=== PATIENT | female | born 1940 ===

== ENCOUNTER 2018-07-11 10:40 | Emergency (ER) | payer MEDICARE ==
[2018-07-11] MEDS ORDERED: SODIUM CHLORIDE 0.9% 1000ML 1,000 ML IVS ONE (10:55)
--- NOTE | 2018-07-11 11:12 | ED.PDOC ---
History of Present Illness - General Chief Complaint: Syncope/Near Syncope Stated Complaint: Unsteady gait, syncopal episodes Time Seen by Provider: 07/11/18 10:43 Exam Limitations: no limitations - History of Present Illness Initial Comments: Maggie Tobar 78 y/o female brought by son with history of not able to get up from sitting position 2 days ago for short while then later that day able to move around then yesterday while sitting on a couch she just passed out for few seconds but then woke up talkint.Denies facial asymmetry,slurred speech ,limb weakness,double or blurry vision.Has history of high blood pressure 2 years ago was placed on antihypertensive but unable to tolerate side effect making her irritable then discontinued,also has dementia was on medication but made her throw up everytime she takes it so discontinued.Son stated has problem with short term memory. Timing/Duration: other - 2 days Severity: moderate Improving Factors: nothing Worsening Factors: nothing Associated Symptoms: other - see hpi Allergies/Adverse Reactions: Allergies NO KNOWN ALLERGY Allergy (Verified 07/11/18 10:55) Home Medications: Ambulatory Orders Clopidogrel Bisulfate [Plavix] 75 mg PO QDAC #30 tab 07/11/18 Lisinopril & Hydrochlorothiazi [Lisinopril/Hctz 20-12.5 mg] 1 tab PO ACBK #30 tab 07/11/18 Pravastatin Sodium 20 mg PO BEDTIME #30 tab 07/11/18 Review of Systems - Review of Systems Constitutional: States: no symptoms reported EENTM: States: no symptoms reported Respiratory: States: no symptoms reported Cardiology: States: no symptoms reported Gastrointestinal/Abdominal: States: no symptoms reported Genitourinary: States: no symptoms reported Musculoskeletal: States: no symptoms reported Skin: States: no symptoms reported Neurological: States: see HPI Hematologic/Lymphatic: States: no symptoms reported Past Medical History (General) - Patient Medical History Hx Stroke: No Hx Dementia: Yes Hx Congestive Heart Failure: No Hx Diabetes: No Hx MRSA: No Surgical History: no surgical history - Vaccination History Hx Influenza Vaccination: No Hx Pneumococcal Vaccination: No - Social History Hx Tobacco Use: No Hx Alcohol Use: No Hx Depression: No Feels Threatened In Home Enviroment: No Hx Physical Abuse: No Hx Emotional Abuse: No - Activities of Daily Living Patient Lives Alone: No - son Grooming Ability: Independent Eating (Feeding) Ability: Independent Toileting Ability: Independent Family Medical History - Family History Mother Family History: No Known Living Status: Physical Exam - Physical Exam General Appearance: Alert, Comfortable, No apparent distress, Other - speech fluent Eye Exam: bilateral normal Ears, Nose, Throat: hearing grossly normal, normal ENT inspection, normal pharynx Neck: non-tender, full range of motion, supple, normal inspection Respiratory: chest non-tender, lungs clear, normal breath sounds Cardiovascular/Chest: normal peripheral pulses, regular rate, rhythm, no murmur Peripheral Pulses: radial,right: 2+, radial,left: 2+ Gastrointestinal/Abdominal: normal bowel sounds, non tender, soft, no orga nomegaly Back Exam: no CVA tenderness, no vertebral tenderness Extremity: no pedal edema, no calf tenderness Neurologic: alert, disoriented x 3 - place,person Skin Exam: normal color, warm/dry Lymphatic: no adenopathy Progress - Progress Progress: 07/11/18 11:14 Vital Signs - 8 hr 07/11/18 10:49 Temperature 98.3 F Pulse Rate [ 71 Apical] Respiratory 20 Rate Blood Pressure 151/75 [Right Arm] O2 Sat by Pulse 99 Oximetry 07/11/18 13:56 Patient unable to keep still while blood pressure being taken was about to walk out of the ER does not want her blood pressure to be repeatedly taken wanting to go home.Declined to stay;walking out of ER but nurse called her back to get BP taken but could not keep still 07/11/18 14:01 07/11/18 14:10 able to walk and get out of the exam table w/o assistance and also walk to the toilet w/o falling - Results/Orders Results/Orders: 07/11/18 10:51 IV Care:Saline Lock per Protoc QSHIFT 07/11/18 10:53 Hold Metformin x 48Hrs [id number] 07/11/18 11:00 EKG STAT 07/11/18 21:00 Pravastatin Sodium [Pravachol] 20 mg PO BEDTIME Laboratory Results - last 24 hr 07/11/18 07/11/18 07/11/18 10:54 11:18 11:18 WBC 4.9 RBC 5.10 Hgb 15.0 Hct 44.7 MCV 87.6 MCH 29.4 MCHC 33.6 RDW 14.1 Plt Count 288 MPV 8.9 Absolute Neuts (auto) 2.60 Absolute Lymphs (auto) 1.70 Absolute Monos (auto) 0.30 Absolute Eos (auto) 0.20 Absolute Basos (auto) 0.00 Neutrophils % 53.7 Lymphocytes % 35.7 Monocytes % 6.7 Eosinophils % 3.6 Basophils % 0.3 PT 9.8 INR 0.98 PTT (SP) 25.9 Sodium 141 Potassium 3.6 Chloride 107 Carbon Dioxide 27 Anion Gap 10.6 L BUN 12 Creatinine 0.90 BUN/Creatinine Ratio 13.3 Random Glucose 92 Serum Osmolality 280.7 Lactic Acid 1.2 Calcium 9.1 Magnesium 2.1 Total Bilirubin 0.7 Direct Bilirubin 0.1 Indirect Bilirubin 0.6 AST 26 ALT 17 Alkaline Phosphatase 72 Creatine Kinase 499 H* CK-MB (CK-2) 1.7 CK-MB (CK-2) % 0.30 Troponin I < 0.02 Serum Total Protein 7.3 Albumin 3.8 TSH Urine Color Urine Appearance Urine pH Ur Specific Perry Urine Protein Urine Glucose (UA) Urine Ketones Urine Blood Urine Nitrite Urine Bilirubin Urine Urobilinogen Ur Leukocyte Esterase Urine RBC Urine WBC Ur Epithelial Cells Urine Bacteria Urine Mucus Urine Opiates Screen Negative Urine Barbiturates Negative Ur Phencyclidine Scrn Negative U Amphetamin/Meth Scrn Negative U Benzodiazepines Scrn Negative U Cocaine Metab Screen Negative U Cannabinoids Screen Negative 07/11/18 07/11/18 11:18 12:20 WBC RBC Hgb Hct MCV MCH MCHC RDW Plt Count MPV Absolute Neuts (auto) Absolute Lymphs (auto) Absolute Monos (auto) Absolute Eos (auto) Absolute Basos (auto) Neutrophils % Lymphocytes % Monocytes % Eosinophils % Basophils % PT INR PTT (SP) Sodium Potassium Chloride Carbon Dioxide Anion Gap BUN Creatinine BUN/Creatinine Ratio Random Glucose Serum Osmolality Lactic Acid Calcium Magnesium Total Bilirubin Direct Bilirubin Indirect Bilirubin AST ALT Alkaline Phosphatase Creatine Kinase CK-MB (CK-2) CK-MB (CK-2) % Troponin I Serum Total Protein Albumin TSH 2.33 Urine Color Yellow Urine Appearance Cloudy Urine pH 5.5 Ur Specific Perry >= 1.030 Urine Protein Negative Urine Glucose (UA) Negative Urine Ketones Trace Urine Blood Negative Urine Nitrite Negative Urine Bilirubin Negative Urine Urobilinogen 0.2 Ur Leukocyte Esterase Trace H Urine RBC 0 Urine WBC 0-1 Ur Epithelial Cells 1-3 Urine Bacteria 0 Urine Mucus Small Urine Opiates Screen Urine Barbiturates Ur Phencyclidine Scrn U Amphetamin/Meth Scrn U Benzodiazepines Scrn U Cocaine Metab Screen U Cannabinoids Screen - EKG/XRAY/CT EKG: Sinus, no ST T wave changes Comments: HR-65 CT Ordered: Yes - head w/contrast -no acute abnormalities noted Departure - Departure Clinical Impression: Non compliance w medication regimen Altered mental status, unspecified Qualifiers: Altered mental status type: unspecified Qualified Code(s): R41.82 - Altered mental status, unspecified Dementia Qualifiers: Dementia type: unspecified type Dementia behavioral disturbance: with behavioral disturbance Qualified Code(s): F03.91 - Unspecified dementia with behavioral disturbance Syncope Qualifiers: Syncope type: unspecified Qualified Code(s): R55 - Syncope and collapse Time of Disposition: 14:01 Disposition: Discharge to Home or Self Care Condition: Fair Departure Forms: ED Discharge - Pt. Copy, Patient Portal Self Enrollment Referrals: Ivonne Sweeney NP [Primary Care Provider] - 1-2 Weeks Prescriptions: Clopidogrel Bisulfate [Plavix] 75 mg PO QDAC #30 tab Lisinopril & Hydrochlorothiazi [Lisinopril/Hctz 20-12.5 mg] 1 tab PO ACBK #30 tab Pravastatin Sodium 20 mg PO BEDTIME #30 tab Home Medications: Ambulatory Orders Clopidogrel Bisulfate [Plavix] 75 mg PO QDAC #30 tab 07/11/18 Lisinopril & Hydrochlorothiazi [Lisinopril/Hctz 20-12.5 mg] 1 tab PO ACBK #30 tab 07/11/18 Pravastatin Sodium 20 mg PO BEDTIME #30 tab 07/11/18 Additional Instructions: return to ER as needed;follow up with primary Md
--- NOTE | 2018-07-11 11:27 | RAD ---
EXAM DESCRIPTION: Chest,1 View CLINICAL HISTORY: 78 years Female, ams COMPARISON: None available. TECHNIQUE: AP radiograph of the chest was obtained. FINDINGS: Trachea is midline.The cardiomediastinal silhouette is normal in size. The pulmonary vasculature is within normal limits.The lungs are clear with no acute consolidation.No evidence of pleural effusions. IMPRESSION: No acute cardiopulmonary process. Electronically signed by: Ariela Mantilla MD 07/11/2018 11:26 AM RV SERVICE TECHNICIAN
--- NOTE | 2018-07-11 12:52 | CT ---
EXAM DESCRIPTION: Head w/wo Contrast CLINICAL HISTORY: ams COMPARISON: None available TECHNIQUE: CT brain is performed prior to and following IV administration usual adult dose of nonionic iodinated contrast. FINDINGS: Precontrast images show no evidence of intracranial hemorrhage. Ventricles and sulci are large consistent with age-related cerebral volume loss. Low density areas in the white matter indicate chronic microvascular ischemic changes related to aging, diabetes or hypertension. Prominent temporal horns are noted with thinning of the medial temporal lobes. Disproportionate temporal lobe atrophy is a pattern suggestive of Alzheimer's disease. After IV contrast, repeat axial scanning through the brain shows normal enhancement of the intracranial vessels. No pathologic brain parenchymal enhancement or enhancing intracranial mass. No subdural hematoma of a chronic nature. Small scalp lesion on the left may be skin appendage lesions such as sebaceous cyst. Globes appear intact. Clear paranasal sinuses, tympanic cavities and mastoid air cells. There is calcification of the intracranial internal carotid arteries. Coronal and sagittal reformatted images confirm the findings. Impression: Senescent brain with chronic microvascular ischemic changes in the cerebral white matter. Normal enhancement of intracranial vessels. Electronically signed by: Santi Neely MD 07/11/2018 12:51 PM [facility]
[2018-07-11] MEDS ORDERED: CLOPIDOGREL 75 MG TAB PO ONE (12:55)
[2018-07-11] MEDS ORDERED: PRAVASTATIN SODIUM 20 MG TAB ONE (13:30)
[2018-07-11 13:38] VITALS: BP 203/86; O2SAT 99
[2018-07-11 15:16] VITALS: TEMP 98.5
[2018-07-11] MEDS ORDERED: PRAVASTATIN SODIUM 20 MG TAB PO SCH (21:00)
== END 2018-07-11 14:06 | disposition home or self-care (01) ==
LOC: ER 10:40
DX: R55 Syncope and collapse (principal); R41.82 Altered mental status, unspecified; F03.91 Unspecified dementia, unspecified severity, with behavioral disturbance; I10 Essential (primary) hypertension; Z91.14 Patient's other noncompliance with medication regimen
CPT/HCPCS: 70470; 71045; 80048; 80076; 80307; 81001; 82550; 82553; 83605; 84443; 84484; 85025; 85610; 85730; 93005; J7030

== ENCOUNTER 2018-07-25 09:51 | Emergency (ER) | payer MEDICARE ==
[2018-07-25 10:31] VITALS: BP 150/81
--- NOTE | 2018-07-25 10:39 | ED.PDOC ---
History of Present Illness - General Chief Complaint: Respiratory Problem Stated Complaint: cough and congestion Time Seen by Provider: 07/25/18 10:36 Source: patient Exam Limitations: no limitations - History of Present Illness Initial Comments: Patient presents with tiredness, sore throat, and non-productive cough for four days. She has dementia and the history is given by her son. He also was ill last week but has no diagnosis. She has a fever today. No other history is available. Timing/Duration: other - 4 days Severity: moderate Improving Factors: nothing Worsening Factors: nothing Associated Symptoms: other - as in HPI Allergies/Adverse Reactions: Allergies NO KNOWN ALLERGY Allergy (Verified 07/25/18 10:32) Home Medications: Ambulatory Orders Clopidogrel Bisulfate [Plavix] 75 mg PO QDAC #30 tab 07/11/18 Lisinopril & Hydrochlorothiazi [Lisinopril/Hctz 20-12.5 mg] 1 tab PO ACBK #30 tab 07/11/18 Pravastatin Sodium 20 mg PO BEDTIME #30 tab 07/11/18 Review of Systems - Review of Systems Constitutional: States: fever EENTM: States: see HPI Respiratory: States: see HPI Cardiology: States: no symptoms reported Gastrointestinal/Abdominal: States: no symptoms reported Genitourinary: States: no symptoms reported Musculoskeletal: States: no symptoms reported Skin: States: no symptoms reported Neurological: States: no symptoms reported Endocrine: States: no symptoms reported Past Medical History (General) - Patient Medical History Hx Stroke: No Hx Dementia: Yes Hx Congestive Heart Failure: No Hx Hypertension: Yes Hx Diabetes: No Hx MRSA: No Surgical History: no surgical history - Vaccination History Hx Influenza Vaccination: No Hx Pneumococcal Vaccination: No - Social History Hx Tobacco Use: No Hx Alcohol Use: No Hx Depression: No Hx Physical Abuse: No Hx Emotional Abuse: No Family Medical History - Family History Mother Family History: No Known Living Status: Physical Exam - Physical Exam General Appearance: Alert Eye Exam: bilateral normal Ears, Nose, Throat: abnormal TM (R) - bulging with serous fluid, abnormal TM (L) - bulging with serous fluid Neck: non-tender, full range of motion, supple Respiratory: lungs clear, normal breath sounds Cardiovascular/Chest: normal peripheral pulses, regular rate, rhythm, no edema Gastrointestinal/Abdominal: normal bowel sounds, non tender, soft Skin Exam: normal color Lymphatic: no adenopathy Progress - Progress Progress: 07/25/18 11:34 Rapid strep positive. Bicillin LA 1.2 million units IM given. Influenza A positive. Patient is outside the treatment window for Tamiflu. Care instructions given. E.R. warnings given. Questions were elicited and answered. Patient and her son voiced understanding and agreement with the plan. Departure - Departure Clinical Impression: Streptococcal sore throat, Influenza Disposition: Discharge to Home or Self Care Condition: Good Departure Forms: ED Discharge - Pt. Copy, Patient Portal Self Enrollment Instructions: Strep Throat (DC), Flu Diet: other - Increase oral fluids Activity: increase activity as tolerated Referrals: Ivonne Sweeney NP [Primary Care Provider] - 1-2 Weeks Home Medications: Ambulatory Orders Clopidogrel Bisulfate [Plavix] 75 mg PO QDAC #30 tab 07/11/18 Lisinopril & Hydrochlorothiazi [Lisinopril/Hctz 20-12.5 mg] 1 tab PO ACBK #30 tab 07/11/18 Pravastatin Sodium 20 mg PO BEDTIME #30 tab 07/11/18 Additional Instructions: Tylenol only for fever or pain control. Do NOT take Aspirin. Increase oral fluids. Return to your regular doctor if symptoms have not resolved in one week.
[2018-07-25] MEDS ORDERED: PENICILLIN BENZATHINE 1.2 MU 1.2 MU/2 ML SYG IM ONE (11:33)
[2018-07-25 12:32] VITALS: TEMP 100; O2SAT 95
== END 2018-07-25 12:15 | disposition home or self-care (01) ==
LOC: ER 09:51
DX: J02.0 Streptococcal pharyngitis (principal); J11.1 Influenza due to unidentified influenza virus with other respiratory manifestations; F03.90 Unspecified dementia, unspecified severity, without behavioral disturbance, psychotic disturbance, mood disturbance, and anxiety; I10 Essential (primary) hypertension
CPT/HCPCS: 87804; 87880; J0561